=== PATIENT | male | born 1945 | race Caucasian/White ===

== ENCOUNTER → 2018-12-24 | Outpatient (REF) | payer MEDICARE, OTHER | LOC: M LAB LCGH 10:08 | PROVIDERS: ATTEND Surgery | DX: R19.5 Other fecal abnormalities (principal) ==

== ENCOUNTER → 2019-04-23 | Outpatient (REF) | LOC: M LAB LCGH 15:29 | PROVIDERS: ATTEND Physician Assistant | DX: D48.5 Neoplasm of uncertain behavior of skin (principal) ==

== ENCOUNTER 2024-01-08 05:58 | Day surgery (SDC) | payer MEDICARE, OTHER ==
[~2024-01-08] VITALS: Ht 177.8 cm; Wt 104.5 kg
[~2024-01-08 05:58] MED LIST: AMLO1TAB24 PO; ATOR40TA75 PO; CEPH500C PO; ELIQ5TAB PO; ENTR1TAB PO; GABA-1171 PO; HYDR-3490 PO; INSU100I24 SQ; JARD1TAB PO; LEVO100T5 PO; LOSA100T46 PO; METO1TAB7 PO; RANO500T2 PO; SOLI1INJ SQ; XARE20TA PO
[2024-01-08] MEDS ORDERED: GLUCOSE 4 GM CHEW PO PRN (06:15)
[2024-01-08] MEDS ORDERED: INSULIN LISPRO (NovoLOG) PER UNIT SC PRN (06:15)
[2024-01-08] MEDS ORDERED: DEXTROSE 50% 50ML SYRINGE IV PRN (06:15)
[2024-01-08] MEDS ORDERED: GLUCAGON INJ 1MG VIAL SC PRN (06:15)
[2024-01-08] MEDS: TETRACAINE 0.5% OPHTH SOLN 4ML OD SCH (06:54)
[2024-01-08] MEDS: FLURBIPROFEN 0.03% OPHTH SOLN 2.5 ML OD SCH (06:54)
[2024-01-08] MEDS: PHENYLEPHRINE 2.5% OPHTH SOL 2ML OD SCH (06:54)
[2024-01-08] MEDS: ATROPINE SULFATE 1% OPHTH SOLN 2ML BTL OD SCH (06:54)
[2024-01-08] MEDS ORDERED: LR 1,000 ML IV SCH (07:00)
[2024-01-08] MEDS ORDERED: MIDAZOLAM INJ 2MG/2ML VIAL As Ordered ONE (07:04)
[2024-01-08] MEDS ORDERED: fentaNYL 100 MCG/2 ML INJECTION As Ordered ONE (07:04)
[2024-01-08] MEDS: LIDOCAINE 1% SDV 5ML VIAL As Ordered ONE (07:59)
[2024-01-08] MEDS: MOXIFLOXACIN 0.6MG/0.4ML INTRAOCULAR SYRINGE As Ordered ONE (08:12)
[2024-01-08 08:19] VITALS: BP 151/80; TEMP 97.9; O2SAT 96
== END 2024-01-08 08:35 | disposition home or self-care (01) ==
LOC: M SDC 05:58
PROVIDERS: ATTEND Ophthalmology
DX: H25.11 Age-related nuclear cataract, right eye (principal); I48.91 Unspecified atrial fibrillation; E11.9 Type 2 diabetes mellitus without complications; E03.9 Hypothyroidism, unspecified; G47.33 Obstructive sleep apnea (adult) (pediatric); Z79.01 Long term (current) use of anticoagulants; Z79.4 Long term (current) use of insulin; Z79.899 Other long term (current) drug therapy; Z88.0 Allergy status to penicillin; Z88.8 Allergy status to other drugs, medicaments and biological substances
CPT/HCPCS: 66984; J2250; J3010; V2632

== ENCOUNTER 2024-03-18 07:58 | Day surgery (SDC) | payer MEDICARE, OTHER ==
[~2024-03-18] VITALS: Ht 177.8 cm; Wt 101.8 kg
[~2024-03-18 07:58] MED LIST changes: +ATROPINE SULFATE 1% OPHTH SOLN 2ML BTL OS SCH; +CHOL25TA9 PO; +CLOP75TA2 PO; +FLURBIPROFEN 0.03% OPHTH SOLN 2.5 ML OS SCH; +LR 1,000 ML IV SCH; +PHENYLEPHRINE 2.5% OPHTH SOL 2ML OS SCH; +POTA-136 PO; +SPIR-10 PO; +TETRACAINE 0.5% OPHTH SOLN 4ML OS SCH; +THERTAB52 PO
[2024-03-18] MEDS ORDERED: MIDAZOLAM INJ 2MG/2ML VIAL As Ordered ONE (08:32)
[2024-03-18] MEDS ORDERED: fentaNYL 100 MCG/2 ML INJECTION As Ordered ONE (08:33)
[2024-03-18] MEDS: FLURBIPROFEN 0.03% OPHTH SOLN 2.5 ML OS SCH (09:26)
[2024-03-18] MEDS: PHENYLEPHRINE 2.5% OPHTH SOL 2ML OS SCH (09:26)
[2024-03-18] MEDS: TETRACAINE 0.5% OPHTH SOLN 4ML OS SCH (09:26)
[2024-03-18] MEDS: ATROPINE SULFATE 1% OPHTH SOLN 2ML BTL OS SCH (09:26)
[2024-03-18] MEDS: MOXIFLOXACIN 0.6MG/0.4ML INTRAOCULAR SYRINGE As Ordered ONE (10:04)
[2024-03-18] MEDS: LIDOCAINE 1% SDV 5ML VIAL As Ordered ONE (10:04)
[2024-03-18 10:20] VITALS: BP 138/68; TEMP 96.5; O2SAT 95
== END 2024-03-18 10:36 | disposition home or self-care (01) ==
LOC: M SDC 07:58
PROVIDERS: ATTEND Ophthalmology
DX: H25.12 Age-related nuclear cataract, left eye (principal); I10 Essential (primary) hypertension; E78.5 Hyperlipidemia, unspecified; E11.9 Type 2 diabetes mellitus without complications; E03.9 Hypothyroidism, unspecified; G47.33 Obstructive sleep apnea (adult) (pediatric); I25.10 Atherosclerotic heart disease of native coronary artery without angina pectoris; I48.91 Unspecified atrial fibrillation; N18.9 Chronic kidney disease, unspecified; Z79.01 Long term (current) use of anticoagulants; Z79.02 Long term (current) use of antithrombotics/antiplatelets; Z79.4 Long term (current) use of insulin; Z79.899 Other long term (current) drug therapy; Z88.0 Allergy status to penicillin; Z88.8 Allergy status to other drugs, medicaments and biological substances
CPT/HCPCS: 66984; J2250; J3010; V2632